=== PATIENT | male | born 1945 | race Caucasian/White ===

== ENCOUNTER 2017-10-25 07:25 | Emergency (ER) | payer OTHER ==
--- NOTE | 2017-10-25 07:34 | EDPHY ---
H & P Stated Complaint: R flank pain and hematuria since this am;slight nausea Time Seen by Provider: 10/25/17 07:33 - Personal History Current Tetanus Diphtheria and Acellular Pertussis (TDAP): Yes - Medical/Surgical History Other PMH: enlarged prostate - Social History Smoking Status: Never smoked Constitutional: Initial Vital Signs Temperature (C) 36.5 C 10/25/17 07:27 Heart Rate 54 L 10/25/17 07:27 Respiratory Rate 18 10/25/17 07:27 Blood Pressure 151/91 H 10/25/17 07:27 O2 Sat (%) 97 10/25/17 07:27 O2 Delivery Mode Room Air Allergies/Adverse Reactions: emycin Allergy (Mild, Uncoded 10/25/17 07:30) GI upset Home Medications: Medication Instructions Recorded Aspirin [Aspirin 81mg (OTC)] 81 mg PO DAILY 05/04/15 Ondansetron Odt [Zofran Odt 4 mg 4 mg PO Q4 PRN #10 tab 10/25/17 (RX)] Tamsulosin HCl [Flomax 0.4 MG (*)] 0.4 mg PO DAILY #10 cap 10/25/17 oxyCODONE IR [Oxycodone Ir (*)] 5 - 10 mg PO Q6 PRN #20 tab 10/25/17 Medical Decision Making - Diagnostics Imaging Results: Imaging Impressions Abdomen/Pelvis CT 10/25/17 07:40 Impression: 1. 6.5-mm calculus in the proximal right ureter with mild right hydronephrosis. Nonobstructive right nephrolithiasis. 2. Other chronic findings, as above. Results called and discussed with Delfin Gutierrez MD on October 25, 2017 at 0819 hours. Attention: This CT examination is specifically designed to evaluate patients who are clinically suspected of having acute obstructive uropathy. This examination does not use radiographic contrast, and as such, provides only a limited evaluation of the abdomen, pelvis, and retroperitoneum. If there is further clinical suspicion for pathological conditions other than obstructive uropathy, a complete CT evaluation of the abdomen and pelvis utilizing intravenous, oral, and rectal contrast should be considered. Imaging: Discussed imaging studies w/ biomass technician Radiologist, I viewed and interpreted images myself ED Course/Re-evaluation: CHIEF COMPLAINT: RLQ pain, hematuria HISTORY OF PRESENT ILLNESS: The patient is a 72 y/o male arriving with his complaining of waxing and waning RLQ pain onset upon waking this morning around 04:00, 3.5 hours ago. Pain goes through to his flank. Pain is not worse with palpation. He noticed blood in his urine at this time as well. He's had some mild nausea that has improved upon assessment. No history of similar symptoms or kidney stones. He denies rash, fever, dysuria, vomiting, diarrhea, testicular pain, recent illness, recent trauma. No abdominal surgical history. REVIEW OF SYSTEMS: A comprehensive 10 system review of systems is otherwise negative aside from elements mentioned in the history of present illness and medical decision making. PHYSICAL EXAM: HR, BP, O2 Sat, RR. Temp noted General Appearance: Alert, well hydrated, appropriate, and non-toxic appearing. Head: Atraumatic without scalp tenderness or obvious injury Eyes: Pupils equal, round, reactive to light and accommodation, EOMI, no trauma , no injection. Nose: Atraumatic, no rhinorrhea, clear. Throat: Mucus membranes moist. Neck: Supple, nontender, no lymphadenopathy. Respiratory: No retractions, no distress, no wheezes, and no accessory muscle use. Lungs are clear to auscultation bilaterally. Cardiovascular: Regular rate and rhythm, no murmurs, rubs, or gallops. Good capillary refill all extremities. Gastrointestinal: Abdomen is soft, nontender, non-distended, no masses, no rebound, no guarding, no peritoneal signs. Musculoskeletal: Normal active ROM of all extremities, atraumatic. Neurological: Alert, appropriate, and interactive. Nonfocal. Skin: No rashes, good turgor, no nodules on palpation. Past medical history: Arthritis Past surgical history: No abdominal surgeries Family history: Brother has a history of kidney stones. Social history: at bedside. DIAGNOSTICS/PROCEDURES/CRITICAL CARE TIME: Abdominal CT: 6mm proximal ureteral stone DIFFERENTIAL DIAGNOSIS: The differential diagnosis for the patient's abdominal pain included but was not limited to appendicitis, cholecystitis, hernias, testicular torsion, gastritis, and urinary tract infection. MEDICAL DECISION MAKING: This is 72 y/o male who presents with 3.5-hour history of RLQ pain and hematuria. Pain is not reproducible on exam and is currently better than initial onset this morning. Presentation likely indicates kidney stone. Plan for IV, labs, UA, and abdominal CT. He declines pain medication at this time. 1L IV NS ordered. CT shows 6mm proximal stone. Awaiting UA results. Reassessed patient and discussed findings. If UA is clean, he will be discharged home with standard kidney stone care and urology follow up instructions. Prescriptions for Flomax, Zofran, and OxyIR provided. He is comfortable with this plan. Return precautions discussed. - Data Points Laboratory Results: Laboratory Results 10/25/17 07:41 10/25/17 07:41 10/25/17 10/25/17 07:41 07:41 WBC 8.57 10^3/uL 10^3/uL (3.80-9.50) RBC 5.10 10^6/uL 10^6/uL (4.40-6.38) Hgb 14.0 g/dL g/dL (13.7-17.5) Hct 40.9 % % (40.0-51.0) MCV 80.2 fL L fL (81.5-99.8) MCH 27.5 pg L pg (27.9-34.1) MCHC 34.2 g/dL g/dL (32.4-36.7) RDW 13.3 % % (11.5-15.2) Plt Count 190 10^3/uL 10^3/uL (150-400) MPV 10.4 fL fL (8.7-11.7) Neut % (Auto) 81.6 % H % (39.3-74.2) Lymph % (Auto) 12.3 % L % (15.0-45.0) Swisher % (Auto) 4.8 % % (4.5-13.0) Eos % (Auto) 0.7 % % (0.6-7.6) Baso % (Auto) 0.4 % % (0.3-1.7) Nucleat RBC Rel Count 0.0 % % (0.0-0.2) Absolute Neuts (auto) 7.00 10^3/uL H 10^3/uL (1.70-6.50) Absolute Lymphs (auto) 1.05 10^3/uL 10^3/uL (1.00-3.00) Absolute Monos (auto) 0.41 10^3/uL 10^3/uL (0.30-0.80) Absolute Eos (auto) 0.06 10^3/uL 10^3/uL (0.03-0.40) Absolute Basos (auto) 0.03 10^3/uL 10^3/uL (0.02-0.10) Absolute Nucleated RBC 0.00 10^3/uL 10^3/uL (0-0.01) Immature Gran % 0.2 % % (0.0-1.1) Immature Gran # 0.02 10^3/uL 10^3/uL (0.00-0.10) Sodium 137 mEq/L mEq/L (135-145) Potassium 4.3 mEq/L mEq/L (3.3-5.0) Chloride 106 mEq/L mEq/L (97-110) Carbon Dioxide 24 mEq/l mEq/l (22-31) Anion Gap 7 mEq/L L mEq/L (8-16) BUN 23 mg/dL mg/dL (7-23) Creatinine 1.2 mg/dL mg/dL (0.7-1.3) Estimated GFR 60 Glucose 113 mg/dL H mg/dL (70-100) Calcium 9.5 mg/dL mg/dL (8.5-10.4) Medications Given: Discontinued Medications Sodium Chloride (Ns) 1,000 mls @ 0 mls/hr IV EDNOW ONE; Wide Open PRN Reason: Protocol Stop: 10/25/17 07:41 Last Admin: 10/25/17 07:45 Dose: 1,000 mls Departure - Departure Disposition: Home, Routine, Self-Care Clinical Impression: Ureteral stone Condition: Good Instructions: Kidney Stones (ED), How to Strain Your Urine (ED) Additional Instructions: 1. Take Flomax as prescribed until you pass the stone. 2. Take 800mg ibuprofen every 8 hours for pain and inflammation while symptoms are present for the next few days. 3. Use OxyIR as prescribed as needed for severe pain. This medication can make you drowsy and constipated. Do not use prior to driving. 4. Use Zofran as prescribed when needed for nausea or vomiting. 5. Strain urine as directed. 6. Follow up with urologist on Thursday. You've been referred to Dr. Hooper. 7. Return to the ED for severe pain, inability to urinate, fever, uncontrollable vomiting, or other worsening of condition. Referrals: Adam Berry DO [Primary Care Provider] - As per Instructions Gt Hooper MD [Medical Doctor] - As per Instructions Prescriptions: Ondansetron Odt [Zofran Odt 4 mg (RX)] 4 mg PO Q4 PRN #10 tab PRN Reason: Nausea/Vomiting, Use 1st oxyCODONE IR [Oxycodone Ir (*)] 5 - 10 mg PO Q6 PRN #20 tab PRN Reason: Pain, Severe Tamsulosin HCl [Flomax 0.4 MG (*)] 0.4 mg PO DAILY #10 cap Report Scribed for: Delfin Gutierrez Report Scribed by: Ainsley Mariano Date of Report: 10/25/17 Time of Report: 07:35
[2017-10-25] MEDS ORDERED: NS 1,000 ML IV ONE (07:40)
[2017-10-25 07:55] LABS: PLATELET COUNT 190 10^3/uL (150-400)
[2017-10-25 09:09] VITALS: BP 148/75
== END 2017-10-25 09:19 | disposition home or self-care (01) ==
DX: N20.1 Calculus of ureter (principal)

== ENCOUNTER 2017-10-30 09:13 | Day surgery (SDC) | payer OTHER ==
--- NOTE | 2017-10-30 08:55 | PDHPUP ---
History & Physical Update H&P update statement: This history and physical update is based on an assessment of the patient which was completed after admission or registration (within 24 hours), but prior to the surgery/procedure. H&P update: H&P reviewed & patient examined, no change in patient's condition since H&P completed
[2017-10-30] MEDS ORDERED: ceFAZolin 2 GM/DEXTROSE 100 ML IV ONE (09:23)
[2017-10-30] MEDS ORDERED: LR 1,000 ML IV ONE (09:24)
[2017-10-30] MEDS ORDERED: MIDAZOLAM 2 MG/2 ML VIAL IVP ONE (09:59)
--- NOTE | 2017-10-30 10:00 | PDANEPAE ---
ANE History of Present Illness urolithiasis ANE Past Medical History - Cardiovascular History Hx Hypertension: No Hx Arrhythmias: No Hx Chest Pain: No Hx Coronary Artery / Peripheral Vascular Disease: No Hx CHF / Valvular Disease: No Hx Palpitations: No Cardiovascular History Comment: States had heart scan about 10 years ago but nothing remarkable found. - Pulmonary History Hx COPD: No Hx Asthma/Reactive Airway Disease: No Hx Recent Upper Respiratory Infection: No Hx Oxygen in Use at Home: No Hx Sleep Apnea: No Sleep Apnea Screening Result - Last Documented: Negative - Neurologic History Hx Cerebrovascular Accident: No Hx Seizures: No Hx Dementia: No - Endocrine History Hx Diabetes: No - Renal History Hx Renal Disorders: Yes Renal History Comment: hematuria, kidney stone as of 10/25/17 - Liver History Hx Hepatic Disorders: No - Neurological & Psychiatric Hx Hx Neurological and Psychiatric Disorders: No - Cancer History Hx Cancer: Yes Cancer History Comment: melanoma, squamous cell, basal cell removals, multiple MOHS procedures - Congenital Disorder History Hx Congenital Disorders: No - GI History Hx Gastrointestinal Disorders: No - Other Health History Other Health History: Had a dose of IM antibiotic at Dr. Dick's office today as was running a fever when was in for pre-op visit. - Chronic Pain History Chronic Pain: No - Surgical History Prior Surgeries: nasal surgery. rotator cuff, 1988 ANE Review of Systems Review of Systems: - Exercise capacity METS (RN): 6 METS ANE Patient History - Allergies Allergies/Adverse Reactions: erythromycin base Allergy (Verified 10/29/17 16:40) nausea - Home Medications Home Medications: Aspirin [Aspirin 81mg (OTC)] 05/04/15 [Last Taken 10/27/17] Excedrin Tablet (*) 10/29/17 [Last Taken 10/28/17] Ondansetron Odt [Zofran Odt 4 mg (RX)] 10/29/17 [Last Taken 10/29/17] Tamsulosin HCl [Flomax 0.4 MG (*)] 10/29/17 [Last Taken 10/29/17] Tylenol 10/29/17 [Last Taken 10/30/17 0300] oxyCODONE IR [Oxycodone Ir (*)] 10/29/17 [Last Taken 10/29/17] - NPO status NPO Since - Liquids (Date): 10/30/17 NPO Since - Liquids (Time): 03:00 NPO Since - Solids (Date): 10/29/17 NPO Since - Solids (Time): 18:30 - Smoking Hx Smoking Status: Never smoked - Family Anes Hx Family Hx Anesthesia Complications: none ANE Labs/Vital Signs - Vital Signs Blood Pressure: 165/94 Heart Rate: 59 Respiratory Rate: 16 O2 Sat (%): 94 Height: 170.18 cm Weight: 65.771 kg ANE Physical Exam - Airway Neck exam: FROM Mallampati Score: Class 2 Mouth exam: normal dental/mouth exam - Pulmonary Pulmonary: no respiratory distress - Cardiovascular Cardiovascular: regular rate and rhythym - ASA Status ASA Status: II ANE Anesthesia Plan Anesthesia Plan: general endotracheal anesthesia
[2017-10-30] MEDS ORDERED: PROPOFOL/EMULSION 500 MG/50 ML BOTTLE IV ONE (10:08)
[2017-10-30] MEDS ORDERED: fentaNYL 100 MCG/2 ML INJ ONE ×2 (10:08)
[2017-10-30] MEDS ORDERED: LIDOCAINE 2% JELLY 20 ML (UROJECT) ONE (10:23)
[2017-10-30] MEDS ORDERED: IOPAMIDOL (ISOVUE-M 300) 15 ML VIAL ONE (10:53)
[2017-10-30] MEDS ORDERED: fentaNYL 100 MCG/2 ML INJ IVP PRN (11:41)
[2017-10-30] MEDS ORDERED: NALOXONE HCL 0.4 MG/ML INJ IVP PRN (11:41)
[2017-10-30] MEDS ORDERED: HYDROmorphONE/DILAUDID 1 MG/ML INJ IVP PRN (11:41)
--- NOTE | 2017-10-30 11:51 | POSTANESTH ---
Post Anesthetic Evaluation Cardiovascular Status: Normal, Stable Respiratory Status: Normal, Stable Level of Consciousness/Mental Status: Can Participate in Eval Pain Control: Adequate, Prn Tx Ordered Nausea/Vomiting Control: Adequate, Prn Tx Ordered Complications Possibly Related to Anesthesia: None Noted
--- NOTE | 2017-10-30 12:21 | GOP ---
DATE OF OPERATION: 10/30/2017 SURGEON: Dale Dick MD ANESTHESIA: General. ANESTHESIOLOGIST: Dr. Gonzalez PREOPERATIVE DIAGNOSIS: Right ureteral calculus with hydronephrosis obstruction. POSTOPERATIVE DIAGNOSIS: Right ureteral calculus with hydronephrosis obstruction, with impacted ston e. PROCEDURE PERFORMED: Cystoscopy, retrograde ureteral pyelogram with interpretation, dilation of uret er with ureteral access sheath, ureteroscopy with laser lithotripsy of fragmentation of the stone, as piration of the right renal pelvis for culture and placement of the ureteral stent. FINDINGS: DESCRIPTION OF PROCEDURE: After undergoing general anesthesia, he was prepped and draped in the norm al sterile fashion, and with fluoroscopy, he had a cystoscopy that noted a normal urethra. The prost ate had an intravesical lobe with obstruction and +3 trabeculation of the bladder. No tumor, stones or foreign body were identified. The right ureteral orifice was cannulated and revealed that the sto ne and narrowing of the ureter were noted in the mid 3rd ureter. So at that point I was able to pass a Glidewire beyond the stone and I did a ureteral access dilation, and then with the flexible scope I went up to the stone. It was impacted. There was a lot of edema and swelling. I could eventually get beyond the area that was narrowed and dislodge the stone, and there was a lot of debris that cam e out of the kidney. So at that point I aspirated fluid out of the kidney and sent it for culture, a nd then with the ureteroscopy and the laser lithotripsy a broken fragment of the stone in several pie afsaneh and we extracted some of the pieces, and because of the dense inflammatory reaction where the sto ne was impacted and the diffuse inflammation and visualization was not great, and I could not see any residual stone by x-ray, I elected to place a 4.7 multi-length stent that curled in the renal pelvis and curled in the bladder. A Uro-Jet was placed in the urethra and a 16 Gilman catheter was placed a t that time. I will recommend that he be discharged home with the stent in place and then next week we will have h im get a KUB prior to removal of the stent. I will discuss with his that we may need to repeat his ureteroscopy just to confirm that he is stone-free and the reason that I did not pursue it was be cause of visualization and the inflammatory reaction that was noted proximal to the stone. /[id number]/MODL
[2017-10-30 12:35] VITALS: BP 142/85
== END 2017-10-30 13:32 | disposition home or self-care (01) ==
LOC: FSGY 09:13
PROVIDERS: ATTEND Specialist
PROC: 0T9070Z Drainage of Right Kidney with Drainage Device, Via Natural or Artificial Opening (ICD-10-PCS; principal; 2017-10-30 10:30)
PROC: 0T908ZX Drainage of Right Kidney, Via Natural or Artificial Opening Endoscopic, Diagnostic (ICD-10-PCS; principal; 2017-10-30 10:30)
PROC: 0TC68ZZ Extirpation of Matter from Right Ureter, Via Natural or Artificial Opening Endoscopic (ICD-10-PCS; principal; 2017-10-30 10:30)
DX: N13.2 Hydronephrosis with renal and ureteral calculous obstruction (principal)
CPT/HCPCS: 52353; 76001; C1758; C1769; C1894; 82365-90; C2625; J0690; J2250; J2704; J3010; Q9967

== ENCOUNTER → 2017-11-04 | Outpatient (CLI) | payer OTHER | LOC: FIMAGING 12:23 | PROVIDERS: ATTEND Specialist | DX: N20.0 Calculus of kidney (principal); I87.8 Other specified disorders of veins; Z96.0 Presence of urogenital implants ==

== ENCOUNTER → 2017-11-18 | Outpatient (CLI) | payer OTHER | LOC: FLAB 10:42 | PROVIDERS: ATTEND Physician Assistant Medical | DX: Z09 Encounter for follow-up examination after completed treatment for conditions other than malignant neoplasm (principal); N20.0 Calculus of kidney ==